=== PATIENT | male | born 1960 | race Caucasian/White ===

== ENCOUNTER → 2016-05-11 | Day surgery (SDC) | payer MEDICARE, OTHER ==
[~2016-05-11] VITALS: Ht 175.3 cm; Wt 85.8 kg
[~2016-05-11] MED LIST: AMIT100T2 PO; CEPH-459 PO; CIPR-9 PO; CYMB60CA PO; DEXAMETHASONE SOD PHOS 4 MG/ML VIAL ONE; FAMOTIDINE 20 MG/2 ML VIAL ONE; HYDROmorphone HCL PF 2 MG/ML VIAL ONE; INSULIN HUMAN REGULAR 1,000 UNITS/10 ML VIAL SQ PRN; LACTATED RINGER'S 1000 ML INJ 1,000 ML IV ONE; LACTATED RINGER'S 1000 ML IV SCH; LORazepam 2 MG/ML VIAL ONE; LOSA100T PO; METOPROLOL TARTRATE 25 MG TAB PO PRN; MIDAZOLAM HCL 2 MG/2 ML VIAL ONE; MORP1TAB26 PO; ONDANSETRON HCL 4 MG/2 ML VIAL IV PUSH ONE; ONDANSETRON HCL 4 MG/2 ML VIAL IV PUSH PRN; OXYB5TAB10 PO; OXYC1TAB36 PO; PERC10TA27 PO; PERC5TAB12 PO; PROPOFOL 200 MG/20 ML AMP IV ONE; SODIUM CHLORID 0.9% 500 ML IV SCH; TAMS5CAP PO; VESI5TAB PO; ceFAZolin 1,000 MG/NS 100 ML IV SCH; ePHEDrine/NS 25 MG/5 ML SYR IV ONE; fentaNYL CITRATE 250 MCG/5 ML AMP ONE; oxyCODONE/ACETAMINOPHEN 5 MG/325 MG TAB PO PRN
[2016-05-11 10:10] VITALS: BP 158/95; PULSE 76; RESP 16; TEMP 98.4; O2SAT 95
[2016-05-11 10:33] LABS: AUTOMATED NEUTROPHIL # 9.9 TH/MM3 (1.8-7.7); BASOPHIL # 0.1 TH/MM3 (0-0.2); BASOPHIL % 0.4 % (0.0-2.0); EOSINOPHIL # 0.1 TH/MM3 (0-0.4); EOSINOPHIL % 0.8 % (0.0-4.0); HEMATOCRIT 41.4 % (39.0-51.0); HEMO FLAGS DIFF FINAL; LYMPH % 20.2 % (9.0-44.0); LYMPHOCYTE # 2.7 TH/MM3 (1.0-4.8); MEAN CELL VOLUME 89.1 FL (80.0-100.0); MEAN CORPUSCULAR HEMOGLOBIN 31.4 PG (27.0-34.0); MEAN CORPUSCULAR HGB CONC 35.2 % (32.0-36.0); MONO % 5.5 % (0.0-8.0); NEUT % 73.1 % (16.0-70.0); PLATELET COUNT 309 TH/MM3 (150-450); RED BLOOD COUNT 4.65 MIL/MM3 (4.50-5.90); RED CELL DISTRIBUTION WIDTH 13.5 % (11.6-17.2); WHITE BLOOD COUNT 13.5 TH/MM3 (4.0-11.0)
--- NOTE | 2016-05-11 14:07 | HHI.PR ---
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 Operative procedure in detail: Patient was brought to the operating room suite and placed supine on the cystoscopy table. He was then placed under general anesthesia. He was then repositioned in the dorsal lithotomy position and prepped and draped in normal sterile fashion. After an appropriate timeout was undertaken I proceeded with cystoscopic evaluation. The rigid cystoscope with the 19 Sudanese was utilized. I was able to advance the cystoscope up to the point of the bulbar urethra where there was significant narrowing and fixation of the urethra which precluded further passage of the cystoscope. I next withdrew the cystoscope and advanced a 12 Sudanese Molina catheter into the urinary bladder. The bladder was x-rayed all urine and then subsequently filled up with approximate 500 cc of sterile water. I then proceeded with making a small 1 cm incision just above the symphysis pubis in the midline. I utilized a spinal needle to check for trajectory and was easily able to advance the needle into the bladder with evacuation of clear irrigant. Next the peel- away suprapubic catheter insertion device was utilized and following the previously determined trajectory I was able to easily advance the device into the urinary bladder with evacuation of irrigant fluid. A 16 Sudanese 10 cc Molina catheter was then easily advanced after the obturator was removed and subsequent to this the peel-away portion of the device was removed without difficulty leaving just the Molina catheter in place. The Molina catheter was then anchored in position with a 0 silk suture. The previously placed 12 Sudanese catheter via the urethra was left indwelling and it is anticipated that it will be moved later prior to the patient's discharge. Patient was also transferred to the PACU in satisfactory condition having tolerated the procedures well. Complications: None Specimen(s) removed: None Estimated blood loss: Minimal Anesthesia: General Drains: None Fluids: refer to anesthesia record Patient to: PACU Date/Time of Procedure: SEE SURGICAL CARE RECORD Jordan Mullins MD May 11, 2016 14:07
[2016-05-11 15:45] VITALS: BP 142/88; PULSE 89; RESP 18; TEMP 97.6; O2SAT 95
== END | disposition home or self-care (01) ==
LOC: HSDC 08:58
PROVIDERS: ATTEND Urology
DX: N36.0 Urethral fistula (principal); I10 Essential (primary) hypertension
CPT/HCPCS: 00800; 51102; 85025; J0690; J1100; J1170; J2060; J2250; J2405; J3010; J7120

== ENCOUNTER → 2017-03-02 | Outpatient (CLI) | payer MEDICARE, OTHER ==
[~2017-03-02] MED LIST changes: +ATOR10TA15 PO; +BUSP10TA PO; -CEPH-459 PO; -CYMB60CA PO; -DEXAMETHASONE SOD PHOS 4 MG/ML VIAL ONE; -FAMOTIDINE 20 MG/2 ML VIAL ONE; -HYDROmorphone HCL PF 2 MG/ML VIAL ONE; -INSULIN HUMAN REGULAR 1,000 UNITS/10 ML VIAL SQ PRN; -LACTATED RINGER'S 1000 ML INJ 1,000 ML IV ONE; -LACTATED RINGER'S 1000 ML IV SCH; -LORazepam 2 MG/ML VIAL ONE; -METOPROLOL TARTRATE 25 MG TAB PO PRN; -MIDAZOLAM HCL 2 MG/2 ML VIAL ONE; +NITR50CA27 PO; -ONDANSETRON HCL 4 MG/2 ML VIAL IV PUSH ONE; -ONDANSETRON HCL 4 MG/2 ML VIAL IV PUSH PRN; -OXYB5TAB10 PO; +OXYB5TAB8 PO; -OXYC1TAB36 PO; -PERC10TA27 PO; -PROPOFOL 200 MG/20 ML AMP IV ONE; -SODIUM CHLORID 0.9% 500 ML IV SCH; -TAMS5CAP PO; +VARE1 PO; -VESI5TAB PO; -ceFAZolin 1,000 MG/NS 100 ML IV SCH; -ePHEDrine/NS 25 MG/5 ML SYR IV ONE; -fentaNYL CITRATE 250 MCG/5 ML AMP ONE; -oxyCODONE/ACETAMINOPHEN 5 MG/325 MG TAB PO PRN
[2017-03-02 10:05] LABS: PROTHROMBIN TIME - PATIENT 10.1 SEC (9.8-11.6)
[2017-03-02 10:28] LABS: ALT (GPT) 50 U/L (12-78); ANION GAP 7 MEQ/L (5-15); AST (GOT) 17 U/L (15-37); BICARBONATE 30.3 MEQ/L (21.0-32.0); BLOOD UREA NITROGEN 12 MG/DL (7-18); CHLORIDE 101 MEQ/L (98-107); GLOMERULAR FILTRATION RATE 93 ML/MIN (>89); GLUCOSE,FASTING 90 MG/DL (74-99); POTASSIUM 4.2 MEQ/L (3.5-5.1); SODIUM (NA) 138 MEQ/L (136-145)
[2017-03-02 10:30] LABS: ALKALINE PHOSPHATASE 82 U/L (45-117); TOTAL BILIRUBIN ADULT 0.3 MG/DL (0.2-1.0)
[2017-03-02 11:39] LABS: AUTOMATED NEUTROPHIL # 5.4 TH/MM3 (1.8-7.7); BASOPHIL # 0.1 TH/MM3 (0-0.2); BASOPHIL % 0.8 % (0.0-2.0); EOSINOPHIL # 0.4 TH/MM3 (0-0.4); EOSINOPHIL % 3.5 % (0.0-4.0); HEMO FLAGS DIFF FINAL; LYMPH % 35.4 % (9.0-44.0); LYMPHOCYTE # 3.7 TH/MM3 (1.0-4.8); MEAN CELL VOLUME 90.9 FL (80.0-100.0); MEAN CORPUSCULAR HEMOGLOBIN 31.6 PG (27.0-34.0); MEAN CORPUSCULAR HGB CONC 34.7 % (32.0-36.0); MONO % 8.3 % (0.0-8.0); PLATELET COUNT 265 TH/MM3 (150-450); RED BLOOD COUNT 4.73 MIL/MM3 (4.50-5.90); RED CELL DISTRIBUTION WIDTH 14.9 % (11.6-17.2); WHITE BLOOD COUNT 10.4 TH/MM3 (4.0-11.0)
--- NOTE | 2017-03-02 11:51 | RADRPT ---
EXAM DATE/TIME: 03/02/2017 10:41 [facility] COMPARISON: No previous studies available for comparison. INDICATIONS : Evaluate for pneumonia, pneumothorax or communicable disease. Preop chest for fistula repair on 03/09. No chest complaints at this time MEDICAL HISTORY : None. SURGICAL HISTORY : None. ENCOUNTER: Initial ACUITY: 1 day PAIN SCORE: 0/10 LOCATION: Bilateral chest FINDINGS: Moderate hyperinflation with minimal linear atelectasis. The cardiomediastinal contours are unremark able. Osseous structures are intact. CONCLUSION: Moderate hyperinflation with linear atelectasis both bases Willie Kilpatrick MD FACR on March 02, 2017 at 11:48 Board Certified Radiologist. This report was verified electronically.
[2017-03-02 12:41] LABS: BACTERIA, URINE MANY /hpf; BLOOD, URINE SMALL (NEG); COMMENT (UR) CULTURE INDICATED; CULTURE IF INDICATED CULTURE INDICATED; GLUCOSE,URINE NEG (NEG); KETONE, URINE NEG (NEG); MUCUS URINE FEW /lpf (OCC); NITRITE,URINE NEG (NEG); SQUAMOUS EPITHELIAL CELL URINE 1 /hpf (0-5); URINE COLOR YELLOW (YELLW/STRAW)
--- NOTE | 2017-03-02 22:24 | EKG ---
Date Performed: 03/02/2017 Time Performed: 10:15:10 PTAGE: 56 years EKG: Sinus rhythm NORMAL ECG Compared to prior tracing no significant change DOCTOR: Yokasta Rowland Interpretating Date/Time 03/02/2017 22:23:31
== END ==
LOC: CPRE 09:20
PROVIDERS: ATTEND Colon & Rectal Surgery
DX: Z01.810 Encounter for preprocedural cardiovascular examination (principal); Z01.811 Encounter for preprocedural respiratory examination; Z01.812 Encounter for preprocedural laboratory examination; N32.1 Vesicointestinal fistula; R82.99 Other abnormal findings in urine; B96.20 Unspecified Escherichia coli [E. coli] as the cause of diseases classified elsewhere
CPT/HCPCS: 36415; 71020; 80053; 81001; 85025; 85610; 85730; 87077; 87086; 87186; 93005

== ENCOUNTER 2017-03-09 11:40 | Observation (INO) | payer MEDICARE, OTHER ==
[~2017-03-09] VITALS: Ht 175.3 cm; Wt 84.0 kg
[~2017-03-09 11:40] MED LIST changes: -CIPR-9 PO; -NITR50CA27 PO; -OXYB5TAB8 PO
[2017-03-09] MEDS ORDERED: PROPOFOL 200 MG/20 ML AMP IV ONE (12:00)
[2017-03-09] MEDS ORDERED: PHENYLEPH/NS 1000 MCG/10 ML SYR IV ONE (12:00)
[2017-03-09] MEDS ORDERED: DEXAMETHASONE SOD PHOS 4 MG/ML VIAL IV ONE (12:00)
[2017-03-09] MEDS ORDERED: hydrALAZINE HCL 20 MG/ML VIAL IV ONE (12:00)
[2017-03-09] MEDS ORDERED: LIDOCAINE HCL 1% PF 5 ML SYRINGE OTHER ONE (12:00)
[2017-03-09] MEDS ORDERED: ROCURONIUM INJ 50 MG/5 ML SYRINGE IV PUSH ONE (12:00)
[2017-03-09] MEDS ORDERED: ONDANSETRON HCL 4 MG/2 ML VIAL IV PUSH ONE (12:00)
--- NOTE | 2017-03-09 12:00 | PD.HP.UP ---
H&P Update Note The Pre-Admit History and Physical Examination regarding the above named patient was reviewed (including, but not limited to, vital signs, heart, lungs, co-morbid conditions), and upon re-examination it is noted that: the patient's condition has not significantly changed since the last examination. Emil Houston MD Mar 09, 2017 12:00
[2017-03-09] MEDS ORDERED: CIPR-9 PO (12:16)
[2017-03-09] MEDS ORDERED: ALVIMOPAN 12 MG CAPSULE ONE (13:19)
[2017-03-09] MEDS ORDERED: metroNIDAZOLE 500 MG INJ 100 ML IV ONE (13:19)
[2017-03-09] MEDS ORDERED: ceFAZolin INJ 1,000 MG VIAL ONE ×3 (13:19→18:17)
[2017-03-09] MEDS ORDERED: SODIUM CHLORIDE 0.9% INJ 100 ML ONE (13:19)
[2017-03-09] MEDS ORDERED: BUPIVACAINE HCL PF 0.5% 30 ML VIAL ONE ×2 (14:18→14:20)
[2017-03-09] MEDS ORDERED: METRONIDAZOLE 500 MG/100 ML ISONTONIC SOLN IV SCH (15:00)
[2017-03-09] MEDS ORDERED: DEXT 5%-NACL 0.9% 1000 ML INJ 1,000 ML IV SCH (15:00)
[2017-03-09] MEDS ORDERED: CHLORHEXIDINE GLUCONATE 2 % 1 PACK (2 CLOTHS) TOPICAL PRN (15:15)
[2017-03-09] MEDS ORDERED: METOPROLOL TARTRATE 25 MG TAB PO PRN (15:15)
[2017-03-09] MEDS ORDERED: POVIDONE IODINE 5% (ANTISEPSIS KIT) 4 APPLICATIONS EACH NARE PRN (15:15)
[2017-03-09] MEDS ORDERED: LACTATED RINGER'S 1000 ML IV PRN (15:15)
[2017-03-09] MEDS ORDERED: SODIUM CHLORID 0.9% 500 ML IV PRN (15:15)
[2017-03-09] MEDS ORDERED: ALVIMOPAN 12 MG CAPSULE - On Call PO SCH (15:15)
[2017-03-09] MEDS ORDERED: ceFAZolin 1,000 MG/NS 100 ML IV SCH ×2 (15:15)
[2017-03-09] MEDS ORDERED: SUGAMMADEX SODIUM 200 MG/2 ML VIAL IV PUSH ONE ×2 (19:01)
[2017-03-09] MEDS ORDERED: HYDROmorphone HCL PF 2 MG/ML VIAL ONE (19:01)
--- NOTE | 2017-03-09 19:52 | PD.OP ---
Operative Report Date of Surgery: Mar 09, 2017 Preoperative Diagnosis: (1) Recto-urethral fistula Postoperative Diagnosis: (1) Recto-urethral fistula (2) Urethral stricture Procedure: Cystoscopy, direct visual internal urethrotomy and percutaneous placement of suprapubic catheter Anesthesia: General Surgeon: Jordan Mullins Presiding Steward(s): None Operation and Findings: Indication for urologic procedures: Case of a pleasant 56-year-old gentleman with history prostate cancer status post proton beam radiation therapy with resultant fistula development between the rectum and the prostatic urethra. Patient presents now for placement of a suprapubic catheter placement at the same operative setting as a flap repair of the fistula by the colorectal surgeons. Urologic surgery procedures in detail: Patient was brought to the operating room suite and placed supine on the OR table. He was then placed under general anesthesia. He was then repositioned in the dorsolithotomy position and prepped and draped in normal sterile fashion. After appropriate timeout was undertaken I proceeded with cystoscopic evaluation utilizing the rigid cystoscope with a 20 Belgian sheath and 30 lens. The patient was noted to have a circumferential bulbar urethral stricture with a very small opening. I proceeded to perform a direct visual internal urethrotomy using the internal urethrotome with a straight cold knife and cutting at the 12 o'clock position. Subsequent to this the cystoscope was reintroduced and there was rigidity felt involving the remainder of the bulbar urethra extending right up to the prostatic urethra. It took a little bit of force to actually advance the cystoscope within the urinary bladder. There was significant amount of heaped up frondular tissue at the bladder outlet at the ventral position. The actual fistula opening could not easily be seen due to this heaped up tissue. Upon filling the bladder with irrigation fluid was transmitted into the rectum and out of the patient's colostomy bag. Continuous flow was maintained in an effort to keep the bladder distended as much as possible. The site of the previous suprapubic catheter was utilized and a 15 blade was advanced inferomedial from the site. Next the suprapubic catheter insertion device with the needle stylet was utilized after the trajectory was determined by placement of a 18-gauge spinal needle. There was dense tissue noted to this area likely from the previous suprapubic tube however I was able to advance the suprapubic insertion device through this tissue and into the anterior bladder wall. The needle tip could be seen under cystoscopic guidance. Once the trocar was fully advanced the needle stylus was removed and a 16 Belgian 10 cc Molina catheter was placed and the peel-away sheath was removed. I next passed a sensor 0.035 wire through the cystoscope into the bladder and the cystoscope was withdrawn. A 16 Belgian coud catheter was then placed over the wire and subsequent rectal exam demonstrated the foldable to be within the rectum. I was able to re-manipulate the Mloina after taking down the balloon and advance it into the urinary bladder and the balloon reinflated. Both the suprapubic catheter and Molina catheter were then connected to gravity drainage. At this point in time the case was turned over to the colorectal surgeons. Jordan Mullins MD Mar 09, 2017 19:52
[2017-03-09] MEDS ORDERED: DO NOT ADM ANY ANTICOAGULANT DRUGS PRN (20:00)
[2017-03-09] MEDS ORDERED: *ONDANSETRON 4 MG VIAL PERIprocedural Use ONLY ONE (20:04)
[2017-03-09] MEDS ORDERED: PROMETHAZINE INJ 25 MG/ML VIAL ONE (20:19)
[2017-03-09] MEDS: DEXT 5%-NACL 0.45% 1000 ML INJ 1,000 ML IV SCH (21:00)
[2017-03-09] MEDS ORDERED: oxyCODONE/ACETAMINOPHEN 5 MG/325 MG TAB PO PRN ×2 (21:15→23:45)
[2017-03-09] MEDS: LORazepam 2 MG/ML VIAL IV PRN (21:42)
[2017-03-09] MEDS ORDERED: *LABETALOL HCL 100 MG/20 ML VIAL PERIprocedural Use ONLY ONE (22:07)
[2017-03-09 22:20] VITALS: BP 157/96; PULSE 90; RESP 16; TEMP 98.2; O2SAT 95
[2017-03-09 23:00] VITALS: BP 156/99; PULSE 94; PULSE 96; RESP 16; TEMP 97.9; O2SAT 96
[2017-03-09] MEDS: oxyCODONE/ACETAMINOPHEN 5 MG/325 MG TAB PO PRN (23:50)
[2017-03-10] VITALS (32 sets, daily range): BP systolic 140–200; BP diastolic 65–113; PULSE 84–104; RESP 14–18; TEMP 97.6–99.4; O2SAT 92–98
[2017-03-10] MEDS: ENALAPRILAT 2.5 MG/2 ML VIAL IV PRN ×4 (02:58→21:10)
[2017-03-10] MEDS: LORazepam 2 MG/ML VIAL IV PRN ×3 (03:52→23:28)
[2017-03-10] MEDS: oxyCODONE/ACETAMINOPHEN 5 MG/325 MG TAB PO PRN ×3 (05:41→21:11)
[2017-03-10] MEDS ORDERED: LOSARTAN 50 MG TAB PO SCH ×2 (05:45→09:00)
[2017-03-10] MEDS: ALVIMOPAN 12 MG CAPSULE - Post-op dosing PO SCH ×2 (08:49→21:12)
[2017-03-10] MEDS: busPIRone HCL 10 MG TAB PO SCH ×2 (08:49→21:11)
[2017-03-10] MEDS: PANTOPRAZOLE SOD 40 MG DELAYED RELEASE TAB PO SCH (08:50)
[2017-03-10] MEDS: DEXT 5%-NACL 0.45% 1000 ML INJ 1,000 ML IV SCH ×2 (08:51→23:40)
--- NOTE | 2017-03-10 11:36 | HHI.PR ---
Subjective Patient symptoms today Postoperative day #1 placement of suprapubic catheter and direct visual internal urethrotomy Denies complaints Objective Vital Signs Vital Signs Date Time Temp Pulse Resp B/P (MAP) Pulse Ox O2 Delivery O2 Flow Rate FiO2 03/10/17 11:05 97.7 88 16 140/87 (104) 96 03/10/17 09:05 175/65 (101) 03/10/17 08:31 97.6 91 16 161/113 (129) 92 03/10/17 06:00 100 03/10/17 05:00 97 03/10/17 04:00 103 03/10/17 03:10 175/108 (130) 03/10/17 03:00 102 03/10/17 03:00 98.3 98 16 189/109 (135) 94 03/10/17 02:00 104 03/10/17 01:00 101 03/10/17 00:00 100 03/09/17 23:00 97.9 94 16 156/99 (118) 96 03/09/17 23:00 96 03/09/17 22:20 98.2 90 16 157/96 (116) 95 03/09/17 22:20 90 03/09/17 22:00 101 20 145/106 (119) 96 Nasal Cannula 2 03/09/17 21:30 96 20 166/96 (119) 95 Nasal Cannula 2 03/09/17 21:00 92 20 160/95 (116) 94 Nasal Cannula 2 03/09/17 20:45 90 20 173/97 (122) 97 Nasal Cannula 2 03/09/17 20:30 87 23 177/100 (125) 97 Nasal Cannula 2 03/09/17 20:15 88 12 166/85 (112) 97 Nasal Cannula 3 03/09/17 19:59 97.7 87 15 116/66 (83) 97 Nasal Cannula 3 03/09/17 12:29 98.6 87 18 157/107 (124) 95 Intake & Output 03/10/17 03/10/17 07:00 19:00 Intake Total 1740 ml Output Total 1005 ml Balance 735 ml Intake Oral 240 ml IV Total 200 ml Other 1300 ml Output Urine Total 850 ml Stool Total 150 ml Estimated Blood Loss 5 ml Objective Remarks Molina catheter draining medium red-colored urine without clots Suprapubic tube with minimal output Medications and IVs Current Medications Medications (Trade) Dose Ordered Sig/Jen Route Start Time Stop Time Status Last Admin (Lopressor) 25 mg [employer] PRN PO 03/09/17 15:15 03/12/17 15:14 (Betadine 5% Antisepsis Kit) 1 applic [employer] PRN EACH NARE 03/09/17 15:15 03/12/17 15:14 03/09/17 12:30 (Chlorhexidine 2% Cloth) 3 pack [employer] PRN TOPICAL 03/09/17 15:15 03/12/17 15:14 03/09/17 12:00 (Entereg) 12 mg [employer] PO 03/09/17 15:15 03/12/17 15:14 (Entereg) 12 mg BID PO 03/10/17 09:00 03/16/17 21:01 03/10/17 08:49 Metronidazole 100 ml @ 100 mls/hr [employer] IV 03/09/17 15:00 03/11/17 14:59 Cefazolin Sodium 1000 mg/Sodium Chloride 100 ml @ 200 mls/hr [employer] IV 03/09/17 15:15 03/12/17 15:14 03/09/17 15:15 Dextrose/Sodium Chloride 1,000 ml @ 75 mls/hr [id number] IV 03/09/17 21:00 03/10/17 08:51 (Ativan Inj) 1 mg Q6H PRN IV 03/09/17 21:15 03/10/17 03:52 Miscellaneous Information ALL NURSING DEPARTME... UNSCH PRN .XX 03/09/17 20:00 03/10/17 19:59 (Elavil) 100 mg HS PO 03/10/17 21:00 (Buspar) 10 mg BID PO 03/10/17 09:00 03/10/17 08:49 (Protonix) 40 mg DAILY PO 03/10/17 09:00 03/10/17 08:50 (Vasotec Inj) 2.5 mg Q6H PRN IV 03/09/17 22:30 03/10/17 08:52 (Lipitor) 10 mg HS PO 03/10/17 21:00 (Percocet 5-325 Mg) 1 tab Q6H PRN PO 03/09/17 23:45 (Percocet 5-325 Mg) 2 tab Q6H PRN PO 03/09/17 23:45 03/10/17 05:41 (Cozaar) 100 mg DAILY PO 03/11/17 09:00 (Oramorph Sr) 60 mg BID PO 03/10/17 11:30 Assessment and Plan Assessment and Plan Urologic impression: #1 status post placement of suprapubic catheter #2 status post direct visual internal urethrotomy and placement of Molina catheter #3 rectourethral fistula Plan: #1 clamped off Molina catheter #2 continue suprapubic catheter to gravity drainage #3 okay to discharge home when urine light red to clear in color #4 patient will require follow up at my office next week for removal of Molina catheter and within the next 3-4 weeks for exchange of the suprapubic catheter [phone] Jordan Mullins MD Mar 10, 2017 11:36
[2017-03-10] MEDS ORDERED: MORPHINE SULFATE 30 MG CONTROLLED RELEASE TAB PO ONE (11:38)
[2017-03-10] MEDS: MORPHINE SULFATE 60 MG CONTROLLED RELEASE TAB PO SCH ×2 (11:45→21:12)
[2017-03-10] MEDS ORDERED: ONDANSETRON HCL 4 MG/2 ML VIAL IV PUSH PRN (14:45)
[2017-03-10] MEDS: TOLTERODINE TARTRATE 2 MG CAP LA PO SCH (16:00)
[2017-03-10] MEDS ORDERED: ATORVASTATIN 10 MG TAB PO SCH (21:00)
[2017-03-10] MEDS ORDERED: AMITRIPTYLINE HCL 100 MG TAB PO SCH (21:00)
--- NOTE | 2017-03-10 23:15 | HHI.PR ---
Subjective Remarks C/R Surg afebrile, VSS UO good less urine from stoma valencia some PO Objective - Vital Signs Date Time Temp Pulse Resp B/P (MAP) Pulse Ox O2 Delivery O2 Flow Rate FiO2 03/10/17 18:42 101 03/10/17 16:57 172/97 (122) 03/10/17 15:55 98.5 16 98 03/09/17 22:00 Nasal Cannula 2 Objective Remarks PE alert Abd - soft, stoma pink, urine bloody A/P Assessment and Plan Imp: stable reviewed with pt - surgery on fistula will prob req flap for muscle coverage, will prob need to refer to outside academic center DC plans Emil Houston MD Mar 10, 2017 23:15
[2017-03-11] VITALS (11 sets, daily range): BP systolic 163–170; BP diastolic 100–102; PULSE 84–114; RESP 16–20; TEMP 98.4; O2SAT 90–93
[2017-03-11] MEDS: ENALAPRILAT 2.5 MG/2 ML VIAL IV PRN (03:00)
[2017-03-11] MEDS: oxyCODONE/ACETAMINOPHEN 5 MG/325 MG TAB PO PRN (07:33)
[2017-03-11] MEDS: ALVIMOPAN 12 MG CAPSULE - Post-op dosing PO SCH (08:21)
[2017-03-11] MEDS: MORPHINE SULFATE 60 MG CONTROLLED RELEASE TAB PO SCH (08:21)
[2017-03-11] MEDS: busPIRone HCL 10 MG TAB PO SCH (08:21)
[2017-03-11] MEDS: PANTOPRAZOLE SOD 40 MG DELAYED RELEASE TAB PO SCH (08:21)
[2017-03-11] MEDS: TOLTERODINE TARTRATE 2 MG CAP LA PO SCH (08:21)
[2017-03-11] MEDS ORDERED: LOSARTAN 50 MG TAB PO SCH (09:00)
--- NOTE | 2017-03-12 07:48 | MP ---
cc: SARAY MACIAS M.D., BENNETT P. MD DATE OF SURGERY: 03/09/2017 PREOPERATIVE DIAGNOSIS Rectourethral fistula. PROCEDURE 1. Exam under anesthesia. 2. Proctoscopy. POSTOPERATIVE DIAGNOSIS 1. Rectourethral fistula. 2. Significant radiation proctitis. SURGEON Dr. Macias. DETAILS OF PROCEDURE The patient was placed in the supine position. After adequate general anesthesia his legs were placed in the universal stirrups and supported appropriately. Please see Dr. Mullins's dictation for the rather lengthy flap placement of a suprapubic urinary catheter. After the catheter was placed a rectal exam confirmed that the urethral catheter was indeed in the rectum. This was repositioned by Dr. Mullins and placed back into the bladder. The rectourethral fistula was quite large with a lot of inflammatory tissue and hard scarred fibrous at tissue. The defect was actually quite large and bigger than previously appreciated on outpatient evaluation. The tissue around the fistula was quite woody and indurated from radiation and probably not of quality to enable a good flap for closure of the fistula. Due to the late nature of the surgery and the prolonged anesthesia it was elected not to proceed with any definitive flap repair at this time. The patient was brought to the recovery room in stable condition. The sponge and needle counts were correct at the end of the procedure. MD ILIA Palacios/SHAD /6:55 PM /7:29 AM
[2017-03-18] MEDS ORDERED: VESI5TAB2 PO (11:15)
== END 2017-03-11 09:57 | disposition home or self-care (01) ==
LOC: HSDI 11:40 → INTOOBSV 11:40 → HCIS 22:21
PROVIDERS: ADMIT Colon & Rectal Surgery; ATTEND Colon & Rectal Surgery
DX: N36.0 Urethral fistula (principal); K62.7 Radiation proctitis; N35.9 Urethral stricture, unspecified
CPT/HCPCS: 00902; 45990; 52276; 86850; 86900; 86901; 96374; 96375; 96376; C1769; G0378; J0360; J0690; J1100; J1170; J2060; J2370; J2405; J2550; J3010; J7120